=== PATIENT | female | born 1985 | race Caucasian/White ===

== ENCOUNTER 2021-08-08 11:50 | Emergency (ER) | payer SELFPAY ==
[~2021-08-08] VITALS: Ht 172.7 cm; Wt 59.0 kg
[2021-08-08 11:56] VITALS: BP 136/88
[2021-08-08] MEDS ORDERED: SODIUM CHLORIDE 0.9% 1,000 ML IV ONE (13:30)
[2021-08-08] MEDS ORDERED: LORAZEPAM 2MG/ML CPJ IM ONE (13:45)
== END 2021-08-08 15:53 | disposition home or self-care (01) ==
LOC: EDBD 13:00 → ER 13:00
DX: R45.1 Restlessness and agitation (principal); R46.0 Very low level of personal hygiene; Z71.41 Alcohol abuse counseling and surveillance of alcoholic
CPT/HCPCS: 99283; J7030

== ENCOUNTER 2021-08-09 13:20 | Emergency (ER) | payer SELFPAY ==
[~2021-08-09] VITALS: Ht 175.3 cm; Wt 73.0 kg
[2021-08-09 15:27] VITALS: BP 137/80
== END 2021-08-09 15:31 | disposition home or self-care (01) ==
LOC: ER 13:20
DX: R46.2 Strange and inexplicable behavior (principal); Z59.00 Homelessness unspecified; Z87.891 Personal history of nicotine dependence
CPT/HCPCS: 99283